=== PATIENT | male | born 1995 | race Two or more races ===

== ENCOUNTER 2017-12-18 11:00 | Emergency (ER) | payer SELFPAY ==
[2017-12-18 11:04] VITALS: TEMP 98; O2SAT 100
[2017-12-18 11:05] VITALS: BMI 19.8
[2017-12-18] MEDS ORDERED: Sodium Chloride 0.9% 1,000 ML IV STA (11:20)
--- NOTE | 2017-12-18 11:35 | ED PDOC ---
HPI: Abdomen Time Seen by Provider: 12/18/17 11:02 Chief Complaint (Nursing): Abdominal Pain Chief Complaint (Provider): Abdominal Pain History Per: Patient Onset/Duration Of Symptoms: Days (x1) Outside of [place] travel?: No Current Symptoms Are (Timing): Still Present Location Of Pain/Discomfort: Epigastric Quality Of Discomfort: "Pain" Associated Symptoms: Vomiting (non bilious, non bloody) Additional Complaint(s): 22 year old male with no past medical history, brought in by [employer] for possible substance abuse and abdominal pain, onset yesterday. Patient reports epigastric abdominal pain began yesterday after dinner and caused him to vomit today several times. Patient states he smoked marijuana today and smokes regularly to control pain. Patient was picked up by [employer] for being high publicly. Patient reports of similar pain and vomiting in the past. Otherwise no other complaints. PMD: None Provided Past Medical History Reviewed: Historical Data, Nursing Documentation, Vital Signs Vital Signs: Last Vital Signs Temp 98 F 12/18/17 12:35 Pulse 81 12/18/17 12:35 Resp 18 12/18/17 12:35 BP 144/69 12/18/17 12:35 Pulse Ox 100 12/18/17 14:25 - Surgical History Surgical History: No Surg Hx - Family History Family History: States: Unknown Family Hx - Home Medications Home Medications: Ambulatory Orders Medication Instructions Recorded Ondansetron ODT [Zofran ODT] 4 mg PO Q8 PRN #12 odt 12/18/17 - Allergies Allergies/Adverse Reactions: Allergies Allergy/AdvReac Type Severity Reaction Status Date / Time No Known Allergies Allergy Verified 12/18/17 11:11 Review of Systems ROS Statement: Except As Marked, All Systems Reviewed And Found Negative Gastrointestinal: Positive for: Abdominal Pain (epigastric pain ) Psych: Positive for: Other (possible substance abuse ) Physical Exam - Reviewed Nursing Documentation Reviewed: Yes Vital Signs Reviewed: Yes - Physical Exam Appears: Positive for: Non-toxic, No Acute Distress (comfortable) Skin: Positive for: Dry, Diaphoresis Eye Exam: Positive for: Normal appearance, EOMI, PERRL ENT: Positive for: Normal ENT Inspection Neck: Positive for: Normal, Painless ROM, Supple Cardiovascular/Chest: Positive for: Regular Rate, Rhythm. Negative for: Murmur Respiratory: Positive for: Normal Breath Sounds. Negative for: Respiratory Distress Gastrointestinal/Abdominal: Positive for: Normal Exam, Tenderness (epigastric tenderness) Back: Positive for: Normal Inspection. Negative for: L CVA Tenderness, R CVA Tenderness, Vertebral Tenderness Extremity: Positive for: Normal ROM. Negative for: Pedal Edema, Deformity Neurologic/Psych: Positive for: Alert, Oriented. Negative for: Motor/Sensory Deficits - Laboratory Results Result Diagrams: 12/18/17 11:27 12/18/17 11:27 - ECG O2 Sat by Pulse Oximetry: 100 (RA) Pulse Ox Interpretation: Normal - Progress Re-evaluation Time: 15:37 Condition: Re-examined, Improved Medical Decision Making Medical Decision Making: Time: 1121 Plan: -- CMP -- Urine Drug Screen -- Lipase -- CBC with differentials -- Sodium Chloride IV 1000 mls/hr Time: 1232 Plan: -- CT Abdomen & Pelvis IV Contrast Only Time: 1414 CT ABDOMEN & PELVIS RESULTS FINDINGS: The examination is markedly technically limited due to extensive patient motion artifact. Patient refused repeat scan at this time. LOWER THORAX: Unremarkable. LIVER: Unremarkable. No gross lesion or ductal dilatation. GALLBLADDER AND BILE DUCTS: Unremarkable. PANCREAS: Unremarkable. No gross lesion or ductal dilatation. SPLEEN: Unremarkable. ADRENALS: Unremarkable. No mass. KIDNEYS AND URETERS: Unremarkable. No hydronephrosis. No solid mass. VASCULATURE: Unremarkable. No aortic aneurysm. BOWEL: There are several loops of small bowel with circumferential mural thickening in the central abdomen. Consistent with nonspecific enteritis. No bowel obstruction. Note that evaluation of the bowel is grossly limited by the absence of oral contrast. APPENDIX: Not identified. No secondary findings to suggest acute appendicitis. PERITONEUM: Unremarkable. No free fluid. No free air. LYMPH NODES: Unremarkable. No enlarged lymph nodes. BLADDER: Unremarkable. REPRODUCTIVE: Unremarkable prostate BONES: No acute fracture. OTHER FINDINGS: None. IMPRESSION: Limited examination. Circumferential mural thickening of loops of small bowel in the mid abdomen. Consistent with nonspecific enteritis. No bowel obstruction. No additional abnormality identified. Scribe Attestation: Documented by Susan Taylor, acting as a scribe for Dr. Dee Garcia MD. Provider Scribe Attestation: All medical record entries made by the Scribe were at my direction and personally dictated by me. I have reviewed the chart and agree that the record accurately reflects my personal performance of the history, physical exam, medical decision making, and the department course for this patient. I have also personally directed, reviewed, and agree with the discharge instructions and disposition. Disposition - Clinical Impression Clinical Impression: Abdominal pain, Cannabis abuse - Patient ED Disposition Is Patient to be Admitted: No Doctor Will See Patient In The: Office Counseled Patient/Family Regarding: Studies Performed, Diagnosis, Need For Followup - Disposition Referrals: [facility] [Outside] Disposition: Routine/Home Disposition Time: 15:37 Condition: GOOD Additional Instructions: Drink plenty of fluids. Do not use marijuana daily. Follow up with your PCP in 2 -3 days. Prescriptions: Ondansetron ODT [Zofran ODT] 4 mg PO Q8 PRN #12 odt PRN Reason: Nausea/Vomiting Instructions: Marijuana Use and Addiction (DC), Acute Abdomen (Belly Pain)
[2017-12-18 11:40] LABS: ALB/GLOB RATIO 1.2 (1.0-2.1); ALBUMIN 4.8 g/dL (3.5-5.0); ALT/SGPT 45 U/L (21-72); AST/SGOT 37 U/L (17-59); BLOOD UREA NITROGEN 13 mg/dl (9-20); CALCIUM 10.3 mg/dL (8.4-10.2); GFR AFRICAN-AMERICAN > 60; GFR NON-AFRICAN AMERICAN > 60; LIPASE 88 U/L (23-300)
[2017-12-18 11:41] LABS: BASO # 0.1 K/uL (0.0-0.2); BASO % 0.6 % (0.0-2.0); HEMOGLOBIN 15.2 g/dL (12.0-18.0); LYMPH # 0.8 K/uL (1.0-4.3); MEAN CELL VOLUME 86.6 fl (80.0-94.0); MEAN CORPUSCULAR HEMOGLOBIN 29.6 pg (27.0-31.0); MEAN CORPUSCULAR HGB CONC 34.1 g/dL (33.0-37.0); MEAN PLATELET VOLUME 8.3 fl (7.2-11.7); MONO # 0.6 K/uL (0.0-0.8); MONO % 5.7 % (0.0-10.0); NEUT % 85.7 % (50.0-75.0); NRBC % 0.3 % (0.0-0.0); PLATELET COUNT 272 K/uL (130-400); RBC 5.14 Mil/uL (4.40-5.90); RED CELL DISTRIBUTION WIDTH 13.8 % (11.5-14.5); WHITE BLOOD COUNT 10.5 K/uL (4.8-10.8)
[2017-12-18 12:17] LABS: BARBITURATES, UR NEGATIVE (NEGATIVE); BENZODIAZEPINES, UR NEGATIVE (NEGATIVE); OPIATES, UR NEGATIVE (NEGATIVE); PHENCYCLIDINE, UR NEGATIVE (NEGATIVE)
[2017-12-18 12:36] VITALS: PULSE 81; RESP 18
[2017-12-18 13:11] LABS: LARGE PLATELETS PRESENT; LYMPHOCYTE 9 % (20-50); MONOCYTE 5 % (0-10); NEUTROPHIL 86 % (42-75); PLATELET ESTIMATE NORMAL (NORMAL); TOTAL CELLS COUNTED 100
[2017-12-18] MEDS ORDERED: Iohexol 300 100 ML IJ ONE (13:29)
[2017-12-18] MEDS ORDERED: Sodium Chloride 0.9% 50 ML IV ONE (13:29)
--- NOTE | 2017-12-18 14:16 | CT ---
PROCEDURE: CT Abdomen and Pelvis with contrast HISTORY: abdominal pain vomiting COMPARISON: None. TECHNIQUE: Contrast dose: 95 cc Omnipaque 300 Radiation dose: Total exam DLP = 208.67 mGy-cm. This CT exam was performed using one or more of the following dose reduction techniques: Automated exposure control, adjustment of the mA and/or kV according to patient size, and/or use of iterative reconstruction technique. FINDINGS: The examination is markedly technically limited due to extensive patient motion artifact. Patient refused repeat scan at this time. LOWER THORAX: Unremarkable. LIVER: Unremarkable. No gross lesion or ductal dilatation. GALLBLADDER AND BILE DUCTS: Unremarkable. PANCREAS: Unremarkable. No gross lesion or ductal dilatation. SPLEEN: Unremarkable. ADRENALS: Unremarkable. No mass. KIDNEYS AND URETERS: Unremarkable. No hydronephrosis. No solid mass. VASCULATURE: Unremarkable. No aortic aneurysm. BOWEL: There are several loops of small bowel with circumferential mural thickening in the central abdomen. Consistent with nonspecific enteritis. No bowel obstruction. Note that evaluation of the bowel is grossly limited by the absence of oral contrast. APPENDIX: Not identified. No secondary findings to suggest acute appendicitis. PERITONEUM: Unremarkable. No free fluid. No free air. LYMPH NODES: Unremarkable. No enlarged lymph nodes. BLADDER: Unremarkable. REPRODUCTIVE: Unremarkable prostate BONES: No acute fracture. OTHER FINDINGS: None. IMPRESSION: Limited examination. Circumferential mural thickening of loops of small bowel in the mid abdomen. Consistent with nonspecific enteritis. No bowel obstruction. No additional abnormality identified.
[2017-12-18 20:19] VITALS: BP 138/78
== END 2017-12-18 15:50 | disposition home or self-care (01) ==
LOC: H.ER 11:00
DX: R10.13 Epigastric pain (principal); F12.10 Cannabis abuse, uncomplicated
CPT/HCPCS: 74177; 80053; 83690; 85025; 96361; 96372; 96374; 96375; 99283; G0480; J1630; J1885; J2765; J7040; Q9967